=== PATIENT | female | born 1980 | race Caucasian/White ===

== ENCOUNTER → 2021-02-09 14:56 | Outpatient (REF) | payer BC, SELFPAY | LOC: ANHLAB 14:56 | PROVIDERS: Visit Provider Nurse Practitioner | DX: D22.39 Melanocytic nevi of other parts of face (principal) | CPT/HCPCS: 88305 ==

== ENCOUNTER 2021-03-02 08:45 | Emergency (ER) | payer BC, SELFPAY ==
[2021-03-02 08:52] VITALS: BP 117/78; PULSE 114; RESP 16; TEMP 36.7; O2SAT 100
--- NOTE | 2021-03-02 08:54 | ED.URI ---
HPI - URI/Sore Throat General Chief Complaint: Upper Respiratory Infection Stated Complaint: sore throat Time Seen by Provider: 03/02/21 08:54 Source: patient and RN notes reviewed History of Present Illness HPI Narrative: Patient is a 40-year-old female who presents the urgent care with complaints of a sore throat since Monday. Patient states that it woke her up out of her sleep and she has been using ibuprofen for the pain. Patient states that last night she saw white patches . Patient denies of any known exposure to strep or Covid. States that no one else in the home has been sick. Denies of any fever, nausea, vomiting, headache, chills, body aches, cough. No other acute complaints. No acute distress noted. Patient aware of the plan of care. Some parts of this dictation were generated by voice recognition software and may contain typographical and/or grammatical inaccuracies. Related Data Home Medications Medication Instructions Recorded Confirmed No Home Medications 03/02/21 03/02/21 Allergies Allergy/AdvReac Type Severity Reaction Status Date / Time esomeprazole Allergy Unknown Unknown Verified 03/02/21 09:07 GI COCKTAIL Allergy Intermediate Hives / Uncoded 02/17/16 16:10 Red Face Review of Systems Review of Systems: Narrative: CONSTITUTIONAL: Denies fever, chills, or sweats. EYES: Denies visual changes, redness, or discharge. ENT: Denies rhinorrhea, congestion. Reports of sore throat with white patches CARDIOVASCULAR: Denies chest pain, palpitations, or edema. RESPIRATORY: Denies cough or dyspnea. GASTROINTESTINAL: Denies abdominal pain, nausea, vomiting, or diarrhea. GENITOURINARY: Denies dysuria or hematuria. SKIN: Denies rash or itching. MUSCULOSKELETAL: Denies back pain, joint pain, or myalgia. NEUROLOGIC: Denies headache, numbness, or weakness. All other systems reviewed are negative, except as documented in HPI. [facility] Past Medical History Medical History High cholesterol Surgical History Surgical History Hx of LASIK Family History Family History Mother High cholesterol Social History Social History Smoking status: Never smoker Alcohol intake: current Substance use: never Comments At the time of my signature, I reviewed and agree with the nursing past medical, surgical, social, and family history. There is no relevant family history pertinent to the patient complaint. Exam Narrative: Exam Narrative: GENERAL: This is a well-nourished, well-developed patient, in no apparent distress. HEAD: normocephalic, atraumatic. EYES: PERRL. Sclera clear/white. Vision is grossly intact. EARS: External ears normal, auditory canals clear and without drainage, TMs normal without perforation. Hearing grossly intact. NOSE: External nose normal with no obvious nasal discharge, nares without redness, no rhinorrhea. THROAT: Mucous membranes moist, posterior pharynx clear. Mild postnasal drainage NECK: Neck supple, non-tender without lymphadenopathy CARDIOVASCULAR: Regular rate and rhythm without murmurs, gallops, or rubs. RESPIRATORY: Clear to auscultation. Breath sounds equal bilaterally. No wheezes, rales, or rhonchi. SKIN: warm, intact with no suspicious lesions or rash, good texture and turgor. NEURO: awake, alert, and oriented to person, place and time. There were no obvious focal neurologic abnormalities. EXTREMITIES: No clubbing, cyanosis, or edema. Course Vital Signs Vital signs: Vital Signs Temperature 98.1 F 03/02/21 08:52 Pulse Rate 114 H 03/02/21 08:52 Respiratory Rate 16 03/02/21 08:52 Blood Pressure 117/78 03/02/21 08:52 Pulse Oximetry 100 03/02/21 08:52 Temperature 98.1 F 03/02/21 08:52 Pulse Rate 114 H 03/02/21 08:52
[2021-03-02 09:18] VITALS: PULSE 100
== END 2021-03-02 09:18 | disposition home or self-care (01) ==
PROVIDERS: Emergency Provider Nurse Practitioner Family; PCP Family Medicine
DX: J02.9 Acute pharyngitis, unspecified (principal); E78.00 Pure hypercholesterolemia, unspecified
CPT/HCPCS: 87081; 87880; 99213; G0463

== ENCOUNTER 2021-11-11 10:41 | Emergency (ER) | payer BC, SELFPAY ==
[2021-11-11 10:57] VITALS: BP 127/70; PULSE 90; RESP 18; TEMP 37.1; O2SAT 100
--- NOTE | 2021-11-11 11:55 | PC.NURSE ---
unintentionally d/c pt in computer. pt remained in room 4.
--- NOTE | 2021-11-11 12:03 | ED.URI ---
HPI - URI/Sore Throat General Chief Complaint: Upper Respiratory Infection Stated Complaint: Sore Throat Source: patient and RN notes reviewed Mode of arrival: ambulatory History of Present Illness HPI Narrative: 41-year-old female presenting for complaint of sore throat for about 2 days. She endorses a significant change nasal congestion and runny nose with postnasal drainage and headache. She denies fever, chills, dizziness. She says her kids were sick about 2 weeks ago with URIs. She took an at home Covid test that was negative. She states symptoms worsened this morning. She has been taking Tylenol and vitamin C with no significant improvement. Related Data Home Medications Medication Instructions Recorded Confirmed No Home Medications 03/02/21 03/02/21 Allergies Allergy/AdvReac Type Severity Reaction Status Date / Time esomeprazole Allergy Unknown Unknown Verified 03/02/21 09:07 GI COCKTAIL Allergy Intermediate Hives / Uncoded 02/17/16 16:10 Red Face Review of Systems Review of Systems: All systems reviewed & are unremarkable except as noted in HPI and below PMFSH Past Medical History Medical History High cholesterol Surgical History Surgical History Hx of LASIK Family History Family History Mother High cholesterol Social History Social History Smoking status: Never smoker Alcohol intake: current Substance use: never Exam Narrative: GENERAL: Well-appearing, well-nourished, and in no acute distress. HEAD: Normocephalic, atraumatic. EYES: EOMI. No redness or drainage. Conjunctivae normal. ENT: Mucous membranes pink and moist. Nares clear. No rhinorrhea. TMs normal bilaterally. Throat normal. Uvula midline. NECK: Normal AROM. Supple. No lymphadenopathy. CHEST: No respiratory distress. Clear to auscultation. HEART: Regular rate and rhythm. No murmur appreciated. Normal peripheral pulses. ABDOMEN: Soft, nontender, nondistended MUSCULOSKELETAL: No bony tenderness. EXTREMITIES: Normal range of motion. No edema. SKIN: Warm, dry, no rash. Capillary refill normal. Normal skin turgor. NEURO: No focal deficits. Alert and oriented x3. Gait steady. PSYCH: Normal affect. No signs of depression or anxiety. Course Course Level of Care: Express Care Visit Vital Signs Vital signs: Vital Signs Temperature 98.7 F 11/11/21 10:57 Pulse Rate 90 11/11/21 10:57 Respiratory Rate 18 11/11/21 10:57 Blood Pressure 127/70 11/11/21 10:57 Pulse Oximetry 100 11/11/21 10:57 Temperature 98.7 F 11/11/21 10:57 Pulse Rate 90 11/11/21 10:57 Respiratory Rate 18 11/11/21 10:57 Blood Pressure 127/70 11/11/21 10:57 Pulse Oximetry 100 11/11/21 10:57 MDM - URI/Sore Throat MDM Narrative Medical decision making narrative: covid swab neg neg flu strep neg Differential Diagnosis Differential diagnosis: Likely upper respiratory infection, sinusitis, viral infection and influenza Lab Data Attestation: I reviewed the patient's lab results. Lab results narrative: flu and covid negative per RN Labs: Strep Screen Presumptive Negative *(Reference Range: Negative)* Discharge Plan Discharge Clinical Impression: Viral infection Patient Disposition: Home, Self-Care Condition: Stable Instructions: Viral Syndrome (ED) Additional Instructions: This is likely viral illness, no antibiotic is needed at this time. Treatment is aimed toward your specific symptoms. You must treat your symptoms in order to feel better while the virus runs it's course. Recommend antihistamine such as Benadryl at night time and Claritin/Zyrtec/Kati during the day Use inhaler as needed for cough, wheezing, s
== END 2021-11-11 12:52 | disposition home or self-care (01) ==
LOC: EXPBETH 10:44
PROVIDERS: Emergency Provider Nurse Practitioner Family; PCP Family Medicine
DX: B34.9 Viral infection, unspecified (principal); Z20.822 Contact with and (suspected) exposure to COVID-19; E78.00 Pure hypercholesterolemia, unspecified
CPT/HCPCS: 87081; 87426; 87804; 87880; 99213; C9803; G0463

== ENCOUNTER 2022-08-24 08:36 | Emergency (ER) | payer BC, SELFPAY ==
[2022-08-24 08:40] VITALS: BP 125/68; PULSE 92; RESP 18; TEMP 37.2; O2SAT 100
--- NOTE | 2022-08-24 08:40 | ED.URI ---
HPI - URI/Sore Throat General Chief Complaint: Upper Respiratory Infection Stated Complaint: Sore Throat Time Seen by Provider: 08/24/22 08:41 Source: patient and RN notes reviewed History of Present Illness HPI Narrative: Patient is a 41-year-old female who presents the urgent care with complaints of a sore throat and neck tenderness since Monday. Patient states she is been taking Tylenol and ibuprofen. Denies any fever, nausea, vomiting, headache or exposures. No other acute complaints. No acute distress noted. Patient aware of the plan of care. Some parts of this dictation were generated by voice recognition software and may contain typographical and/or grammatical inaccuracies. Related Data Home Medications Medication Instructions Recorded Confirmed No Home Medications 03/02/21 11/11/21 Allergies Allergy/AdvReac Type Severity Reaction Status Date / Time esomeprazole Allergy Unknown Unknown Verified 08/24/22 08:46 GI COCKTAIL Allergy Intermediate Hives / Uncoded 08/24/22 08:46 Red Face Review of Systems Review of Systems: CONSTITUTIONAL: Denies fever, chills, or sweats. EYES: Denies visual changes, redness, or discharge. ENT: Denies rhinorrhea, congestion, otalgia. Reports of sore throat and neck pain CARDIOVASCULAR: Denies chest pain, palpitations, or edema. RESPIRATORY: Denies cough or dyspnea. GASTROINTESTINAL: Denies abdominal pain, nausea, vomiting, or diarrhea. GENITOURINARY: Denies dysuria or hematuria. SKIN: Denies rash or itching. MUSCULOSKELETAL: Denies back pain, joint pain, or myalgia. NEUROLOGIC: Denies headache, numbness, or weakness. All other systems reviewed are negative, except as documented in HPI. [facility] Past Medical History Medical History High cholesterol Surgical History Surgical History Hx of LASIK Family History Family History Mother High cholesterol Social History Social History Smoking status: Never smoker Alcohol intake: current Substance use: never Comments At the time of my signature, I reviewed and agree with the nursing past medical, surgical, social, and family history. There is no relevant family history pertinent to the patient complaint. Exam Narrative: GENERAL: This is a well-nourished, well-developed patient, in no apparent distress. HEAD: normocephalic, atraumatic. EYES: PERRL. Sclera clear/white. Vision is grossly intact. EARS: External ears normal, auditory canals clear and without drainage, TMs normal without perforation. Hearing grossly intact. NOSE: External nose normal with no obvious nasal discharge, nares without redness, no rhinorrhea. THROAT: Mucous membranes moist, posterior pharynx clear. Mild postnasal drainage. NECK: Neck supple, non-tender without lymphadenopathy CARDIOVASCULAR: Regular rate and rhythm without murmurs, gallops, or rubs. RESPIRATORY: Clear to auscultation. Breath sounds equal bilaterally. No wheezes, rales, or rhonchi. SKIN: warm, intact with no suspicious lesions or rash, good texture and turgor. NEURO: awake, alert, and oriented to person, place and time. There were no obvious focal neurologic abnormalities. EXTREMITIES: No clubbing, cyanosis, or edema. Course Course Level of Care: Express Care Visit Vital Signs Vital signs: Vital Signs Temperature 99 F 08/24/22 08:40 Pulse Rate 92 08/24/22 08:40 Respiratory Rate 18 08/24/22 08:40 Blood Pressure 125/68 08/24/22 08:40 Pulse Oximetry 100 08/24/22 08:40 Oxygen Delivery Room Air 08/24/22 08:40 Temperature 99 F 08/24/22 08:40 Pulse Rate 92 08/24/22 08:40 Respiratory Rate 18 08/24/22 08:40 Blood Pressure 125/68 08/24/22 08:40 Pulse Oximetry 100 08/24/22 08:40 Oxygen Delivery Room Air 08/24/22
== END 2022-08-24 09:08 | disposition home or self-care (01) ==
PROVIDERS: Emergency Provider Nurse Practitioner Family; PCP Family Medicine
DX: J02.9 Acute pharyngitis, unspecified (principal); E78.00 Pure hypercholesterolemia, unspecified
CPT/HCPCS: 87081; 87880; 99213; G0463

== ENCOUNTER 2022-09-24 16:44 | Emergency (ER) | payer BC, SELFPAY ==
[2022-09-24 17:00] VITALS: BP 115/70; PULSE 80; RESP 20; TEMP 37.1; O2SAT 98
--- NOTE | 2022-09-24 17:37 | ED.URI ---
HPI - URI/Sore Throat General Stated Complaint: Sore Throat Time Seen by Provider: 09/24/22 17:37 History of Present Illness HPI Narrative: PATIENT PRESENTS WITH UPPER RESPIRATORY SYMPTOMS NO SHORTNESS OF BREATH AND NO CHEST PAIN. PATIENT STATES SHE HAS A FEVER ON AND OFF BUT IS RELIEVED WITH TYLENOL. Related Data Home Medications Medication Instructions Recorded Confirmed No Home Medications 03/02/21 08/24/22 Allergies Allergy/AdvReac Type Severity Reaction Status Date / Time esomeprazole Allergy Unknown Unknown Verified 09/24/22 17:38 GI COCKTAIL Allergy Intermediate Hives / Uncoded 08/24/22 08:46 Red Face Review of Systems Review of Systems: CONSTITUTIONAL: DENIES CHILLS, OR SWEATS. REPORTS FEVER AND GENERALIZED BODY ACHES EYES: DENIES VISUAL CHANGES, REDNESS, OR DISCHARGE. ENT: DENIES OTALGIA. REPORTS NASAL CONGESTION RUNNY NOSE AND SORE THROAT CARDIOVASCULAR: DENIES CHEST PAIN, PALPITATIONS, OR EDEMA. RESPIRATORY: DENIES DYSPNEA. REPORTS OCCASIONAL COUGH GASTROINTESTINAL: DENIES ABDOMINAL PAIN, NAUSEA, VOMITING, OR DIARRHEA. GENITOURINARY: DENIES DYSURIA OR HEMATURIA. SKIN: DENIES RASH OR ITCHING. MUSCULOSKELETAL: DENIES BACK PAIN, JOINT PAIN, OR MYALGIA. REPORTS GENERALIZED BODY ACHES NEUROLOGIC: DENIES HEADACHE, NUMBNESS, OR WEAKNESS. PSYCHIATRIC: DENIES ANXIETY OR DEPRESSION. [facility] Past Medical History Medical History High cholesterol Surgical History Surgical History Hx of LASIK Family History Family History Mother High cholesterol Social History Social History Smoking status: Never smoker Alcohol intake: current Substance use: never Comments AT TIME OF SIGNATURE, AGREE WITH NURSING PAST MEDICAL, SURGICAL, SOCIAL AND FAMILY HISTORY. THERE IS NO RELEVANT FAMILY HISTORY PERTINENT TO THE PRESENTING COMPLAINT Exam Narrative: CONSTITUTIONAL: DENIES CHILLS, OR SWEATS. REPORTS FEVER AND GENERALIZED BODY ACHES EYES: DENIES VISUAL CHANGES, REDNESS, OR DISCHARGE. ENT: DENIES OTALGIA. REPORTS NASAL CONGESTION RUNNY NOSE AND SORE THROAT CARDIOVASCULAR: DENIES CHEST PAIN, PALPITATIONS, OR EDEMA. RESPIRATORY: DENIES DYSPNEA. REPORTS OCCASIONAL COUGH GASTROINTESTINAL: DENIES ABDOMINAL PAIN, NAUSEA, VOMITING, OR DIARRHEA. GENITOURINARY: DENIES DYSURIA OR HEMATURIA. SKIN: DENIES RASH OR ITCHING. MUSCULOSKELETAL: DENIES BACK PAIN, JOINT PAIN, OR MYALGIA. REPORTS GENERALIZED BODY ACHES NEUROLOGIC: DENIES HEADACHE, NUMBNESS, OR WEAKNESS. PSYCHIATRIC: DENIES ANXIETY OR DEPRESSION. Course Course Level of Care: Express Care Visit Vital Signs Vital signs: Vital Signs Temperature 37.1 C 09/24/22 17:00 Pulse Rate 80 09/24/22 17:00 Respiratory Rate 20 09/24/22 17:00 Blood Pressure 115/70 09/24/22 17:00 Pulse Oximetry 98 09/24/22 17:00 Oxygen Delivery Room Air 09/24/22 17:00 Temperature 37.1 C 09/24/22 17:00 Pulse Rate 80 09/24/22 17:00 Respiratory Rate 20 09/24/22 17:00 Blood Pressure 115/70 09/24/22 17:00 Pulse Oximetry 98 09/24/22 17:00 Oxygen Delivery Room Air 09/24/22 17:00 MDM - URI/Sore Throat Differential Diagnosis Differential diagnosis: Likely upper respiratory infection, croup, otitis media, sinusitis, viral infection, bronchitis, influenza, pharyngitis and other Lab Data Labs: Influenza A Screen Negative Reference Range: Negative Influenza B Screen Negative Reference Range: Negative Discharge Plan Discharge Patient Disposition: Home, Self-Care Condition: Stable Instructions: Upper Respiratory Infection (DC) Additional Instructions: TAKE MEDICATIONS PRESCRIBED
== END 2022-09-24 18:00 | disposition home or self-care (01) ==
PROVIDERS: Emergency Provider Nurse Practitioner Family; PCP Family Medicine
DX: J06.9 Acute upper respiratory infection, unspecified (principal); E78.00 Pure hypercholesterolemia, unspecified
CPT/HCPCS: 87804; 99213; G0463